=== PATIENT | female | born 1995 | race Two or more races ===

== ENCOUNTER 2021-09-09 16:23 | Emergency (ER) | payer MEDICAID, OTHER ==
[~2021-09-09] VITALS: Ht 160 cm; Wt 49.9 kg
[2021-09-09 16:34] VITALS: BP 120/77
== END 2021-09-09 23:23 | disposition left against medical advice (07) ==
LOC: ER 16:23
DX: H92.02 Otalgia, left ear (principal); Z53.21 Procedure and treatment not carried out due to patient leaving prior to being seen by health care provider